=== PATIENT | female | born 1980 | race Caucasian/White ===

== ENCOUNTER 2017-01-02 00:26 | Emergency (ER) | payer MEDICAID ==
[~2017-01-02] VITALS: Ht 157.5 cm; Wt 128.0 kg
[2017-01-02] MEDS ORDERED: FAMOTIDINE 20MG/2ML VIAL IV STA (04:44)
[2017-01-02] MEDS ORDERED: SODIUM CHLORIDE 0.9% 1,000 ML IV ONE (04:44)
[2017-01-02] MEDS ORDERED: ONDANSETRON HCL 4MG/2ML VIAL IV STA (04:44)
[2017-01-02] MEDS ORDERED: KETOROLAC 30MG/ML VIAL IV STA (04:44)
[2017-01-02 05:18] LABS: BASOPHILS % 0.3 % (0.0-2.0); HEMATOCRIT. 36.6 % (36.0-48.0); HEMOGLOBIN. 12.5 g/dL (12.0-16.0); LYMPHOCYTES % 14.1 % (20.0-50.0); MEAN CORPUSCULAR HEMOGLOBIN 27.2 pg (28.0-32.0); MEAN CORPUSCULAR VOLUME 79.9 fL (81.0-99.0); MEAN PLATELET VOLUME 7.7 fl (7.4-10.4); MONOCYTES % 4.1 % (2.0-8.0); NEUTROPHILS % 81.5 % (40.0-76.0); PLATELET 258 x1000/uL (130-400); RED BLOOD CELL COUNT 4.58 mill/uL (4.2-5.4); RED CELL DISTRIBUTION WIDTH 15.3 % (11.6-14.6)
[2017-01-02 05:36] LABS: CHLORIDE 104 mEq/L (98-107)
[2017-01-02 05:39] LABS: CARBON DIOXIDE 25 mEq/L (21-32)
[2017-01-02 05:51] LABS: CLARITY URINE CLEAR (CLEAR); COLOR URINE YELLOW (YELLOW); GLUCOSE URINE NEGATIVE (NEGATIVE); KETONES URINE TRACE (NEGATIVE); LEUKOCYTE ESTERASE URINE NEGATIVE (NEGATIVE); NITRITE URINE NEGATIVE (NEGATIVE); OCCULT BLOOD URINE 1+ (NEGATIVE); PH URINE 6.5 (4.5-8.0); PROTEIN URINE NEGATIVE (NEGATIVE); UROBILINOGEN URINE 0.2 E.U./dL (0.2-1.0)
[2017-01-02 08:31] VITALS: BP 137/63
== END 2017-01-02 08:34 | disposition home or self-care (01) ==
LOC: ER 00:26
DX: K29.00 Acute gastritis without bleeding (principal); R03.0 Elevated blood-pressure reading, without diagnosis of hypertension
CPT/HCPCS: 36415; 80053; 81001; 81025; 83690; 85025; 96361; 96374; 96375; 99285; J1885; J2405; J3490; J7030; Z7610

== ENCOUNTER 2021-07-17 17:27 | Emergency (ER) | payer MEDICAID ==
[~2021-07-17] VITALS: Ht 157.5 cm; Wt 96.0 kg
[2021-07-17] MEDS ORDERED: NAPROXEN 375MG TABLET PO ONE (20:45)
[2021-07-17 21:10] VITALS: BP 121/75
[2021-07-17] MEDS ORDERED: NAP5EC MT (21:39)
== END 2021-07-17 22:02 | disposition home or self-care (01) ==
LOC: ER 17:27
DX: S63.591A Other specified sprain of right wrist, initial encounter (principal); M25.511 Pain in right shoulder; M79.641 Pain in right hand; V49.49XA Driver injured in collision with other motor vehicles in traffic accident, initial encounter; Y93.89 Activity, other specified; Y92.488 Other paved roadways as the place of occurrence of the external cause
CPT/HCPCS: 29125; 73030; 73090; 73130; 81025; 99284